=== PATIENT | female | born 1945 | race Caucasian/White ===

== ENCOUNTER 2023-02-05 19:54 | Emergency (ER) | payer BC, MEDICAID ==
[~2023-02-05] VITALS: Ht 154.9 cm; Wt 59.8 kg
[2023-02-05 21:11] VITALS: BP 116/66; PULSE 80; O2SAT 97
[2023-02-05 21:57] LABS: CLARITY URINE TURBID (CLEAR); COLOR URINE YELLOW (YELLOW); GLUCOSE URINE NEGATIVE (NEGATIVE); KETONES URINE 1+ (NEGATIVE); LEUKOCYTE ESTERASE URINE 2+ (NEGATIVE); NITRITE URINE NEGATIVE (NEGATIVE); OCCULT BLOOD URINE TRACE (NEGATIVE); PROTEIN URINE 1+ (NEGATIVE); SPECIFIC GRAVITY URINE 1.021 (1.005-1.030)
[2023-02-05 22:13] LABS: BASOPHILS % 0.9 % (0.0-2.0); EOSINOPHILS % 1.3 % (0.0-5.0); HEMATOCRIT. 35.2 % (36.0-48.0); LYMPHOCYTES % 25.4 % (20.0-50.0); MEAN CORPUSCULAR HEMOGLOBIN 31.2 pg (28.0-32.0); MEAN CORPUSCULAR HGB CONC 34.2 g/dL (31.0-37.0); MEAN PLATELET VOLUME 7.3 fl (7.4-10.4); MONOCYTES % 6.4 % (2.0-8.0); PLATELET 441 x1000/uL (130-400); RED BLOOD CELL COUNT 3.86 mill/uL (4.2-5.4); WHITE BLOOD COUNT 12.5 x1000/uL (4.5-11.0)
[2023-02-05 22:23] LABS: CHLORIDE 106 mEq/L (98-107); INDEX HEMOLYSI 1 (1-3); INDEX ICTERIC 1 (1-4); INDEX LIPEMIC 1 (1-3); POTASSIUM 3.9 mEq/L (3.5-5.1); SODIUM 136 mEq/L (136-145)
[2023-02-05 22:32] LABS: ALANINE AMINOTRANSFERASE 16 IU/L (13-61); ALBUMIN 3.8 g/dL (3.4-5.0); ASPARTATE AMINOTRANSFERASE 10 IU/L (15-37); BILIRUBIN TOTAL 0.5 mg/dL (0.1-1.0); CALCIUM 9.2 mg/dL (8.5-10.1); CARBON DIOXIDE 24 mEq/L (21-32); CREATININE 1.1 mg/dL (0.6-1.3); GLUCOSE 170 mg/dL (70-105); PROTEIN TOTAL 8.5 g/dL (6.0-8.3); UREA NITROGEN BLOOD 18 mg/dL (7-21)
[2023-02-05 22:35] LABS: BACTERIA URINE 4+
[2023-02-05 22:36] LABS: RBC URINE 0-2 /hpf (0-2); SQUAMOUS EPITHELIAL CELL URINE 3+ /lpf (RARE/1+)
[2023-02-06] MEDS ORDERED: CEPH500C2 MT (01:56)
== END 2023-02-06 03:09 | disposition home or self-care (01) ==
LOC: ER 19:54
DX: M25.552 Pain in left hip (principal); N39.0 Urinary tract infection, site not specified; F31.9 Bipolar disorder, unspecified; F03.90 Unspecified dementia, unspecified severity, without behavioral disturbance, psychotic disturbance, mood disturbance, and anxiety; E78.00 Pure hypercholesterolemia, unspecified; E11.9 Type 2 diabetes mellitus without complications; I10 Essential (primary) hypertension; Z98.890 Other specified postprocedural states
CPT/HCPCS: 36415; 72170; 80053; 81003; 85025; 93971; 99284